=== PATIENT | female | born 1960 | race African-American/Black ===

== ENCOUNTER 2017-05-14 15:56 | Inpatient (IN) | payer BC ==
[~2017-05-14] VITALS: Ht 157.5 cm; Wt 48.5 kg
--- NOTE | ~2017-05-14 | HC ---
[facility] [place] [address] CONSULTATION Name: FRANCOIS LINTON Room #: 426-P [facility] IN M.R.#: [id number] Admission: 05/14/17 Attend Phys: Bronson Chavez MD Discharge: Date of : 60 Report #: [id number] THIS REPORT FOR: //name// CC: Dania Philippe DATE OF SERVICE: 05/15/2017 ATTENDING PHYSICIAN: Reyes Freeman MD REASON FOR CONSULTATION: Abdominal pain, nausea, and vomiting. HISTORY OF PRESENT ILLNESS: This is a 56-year-old female patient who was seen in the [facility] emergency room with abdominal pain starting the night before her admission. She also has some difficulty with nausea and vomiting and was directed to the emergency room for further evaluation and potential treatment by Dr. Silverio. The patient had not passed flatus and had a bowel movement on the morning of her admission. She denies any fever or chills. She underwent CT of the abdomen and pelvis, which showed changes consistent with a small-bowel obstruction. I have been asked to see the patient for further evaluation and treatment. PAST MEDICAL HISTORY: Significant for mixed connective tissue disease. The patient also has gastroesophageal reflux disease. PAST SURGICAL HISTORY: Includes a and bilateral tubal ligation. MEDICATIONS: Include omeprazole, Mysoline, and mycophenolate. Please see the electronic medical record for dosing details. ALLERGIES: DEMEROL. FAMILY HISTORY: Reviewed and noncontributory to this hospitalization. SOCIAL HISTORY: The patient is and accompanied by both her and mother. She denies use of tobacco, alcohol, or illicit drugs. 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 REVIEW OF SYSTEMS: As per history of present illness. In addition, GENERAL: The patient denies fever or chills. Denies unintentional weight loss. HEENT: Denies changes in taste, vision, hearing, or smell. RESPIRATORY: Denies shortness of breath, COPD or asthma. CARDIOVASCULAR: Denies chest pain or palpitations. GASTROINTESTINAL: As per history of present illness. Denies bright red blood per rectum. [facility] [address] [place] [address] CONSULTATION Name: LULY BOOTHFRANCOIS Room #: 426-P [facility]#: [id number] Admission: 05/14/17 Attend Phys: Bronson Chavez MD Discharge: Date of : 60 Report #: [id number] GENITOURINARY: Denies dysuria, urgency, increased urinary frequency, or hematuria. MUSCULOSKELETAL: Denies myalgia, arthralgia or arthritis. NEUROLOGIC: Denies headaches, numbness, or tingling. PSYCHIATRIC: Denies depression, anxiety or suicidal ideations. SKIN AND INTEGUMENTARY: Denies new skin lesions, rashes, or moles. ENDOCRINE: Denies polydipsia, polyuria, heat or cold intolerance. HEMATOLOGIC: Denies easy bleeding or bruising. All other review of systems is negative. PHYSICAL EXAMINATION: VITAL SIGNS: Temperature 97.7, blood pressure 138/87, pulse 72, and respirations 16. GENERAL: This is a well-developed, well-nourished 56-year-old female patient, in no acute distress. HEENT: Atraumatic, normocephalic with moist mucosal membranes. Oropharynx is clear. She has no scleral icterus. NECK: Supple. No appreciable lymphadenopathy. Trachea is midline. CHEST: Clear bilaterally. No crackles or wheezes. CARDIOVASCULAR: Regular rate and rhythm. ABDOMEN: Soft and mildly tender to palpation in the left lower quadrant with no rebound or guarding. No palpable masses. No appreciable hernias. GENITOURINARY: Normal external female genitalia. EXTREMITIES: No clubbing, cyanosis, or edema. NEUROLOGIC: Cranial nerves 2-12 are grossly intact. PSYCHIATRIC: Normal mood and affect. SKIN AND INTEGUMENTARY: No acute inflammatory changes, rashes or lesions are present. LABORATORY DATA: CBC from today shows a white blood cell count 5.0, hemoglobin 12.0, hematocrit 36.0 and platelets 155. Electrolytes show sodium 144, potassium 3.8, chloride 110, CO2 of 27, BUN 16, creatinine 0.7, and glucose 105. Lactic acid level last night was 1.7. Liver function tests showed a mildly elevated AST of 38. The remainder of her liver function tests were within normal limits. Lipase was normal at 84. Urinalysis showed 1+ ketones. RADIOLOGIC STUDIES: CT of the abdomen and pelvis, findings are as noted above. Multiple small-bowel loops were dilated into the distal small-bowel region suggestive of a distal small-bowel obstruction. There were no acute findings, otherwise with no appendicitis and a normal gallbladder. IMPRESSION AND PLAN: This is a 56-year-old female patient with abdominal pain, nausea, and vomiting and CT evidence for a small-bowel obstruction. We discussed the pathophysiology and natural history of small-bowel obstructions as well as treatment alternatives and surgical options. The patient reports having [facility] [address] [place] [address] CONSULTATION Name: FRANCOIS LINTON Room #: 426-P [facility] .R.#: [id number] Admission: 05/14/17 Attend Phys: Bronson Chavez MD Discharge: Date of : 60 Report #: [id number] passed a bowel movement earlier this morning and states that she is feeling well and is interested in being dismissed home. She does not have a nasogastric tube in place. This is reasonable considering she has a normal lactate, normal white blood cell count, and relatively benign exam. She would need to demonstrate clearance of her bowel obstruction and as such, I have ordered a KUB and upright to be obtained today. Should she show evidence for a worsening small-bowel obstruction, she would benefit from nasogastric decompression and bowel rest. Further recommendations will be made pending results of the KUB. I sincerely appreciate the opportunity to participate in the care of this patient and we will leave further recommendations and orders in the electronic medical record as appropriate. Thank you very much. <ELECTRONICALLY SIGNED> By: Eduard Philippe MD, FACS 05/16/17 [id number] Eduard Philippe MD, FACS /nt
[2017-05-14 15:59] VITALS: BP 132/81
[2017-05-14 16:43] LABS: HEMOGLOBIN 12.7 gm/dL (12.0-15.0); MCH 30.6 pg (26.0-34.0); MCHC 33.5 g/dL (28.0-37.0); MCV 91.3 fL (80.0-100.0); RBC 4.16 mil/uL (4.20-5.00); RDW 12.8 % (10.5-14.5)
[2017-05-14 16:47] LABS: CALCIUM 9.3 mg/dL (8.5-10.1); CREATININE 0.7 mg/dL (0.6-1.0); POTASSIUM 3.9 mmol/L (3.5-5.1)
[2017-05-14 16:53] LABS: ALBUMIN 4.4 g/dL (3.4-5.0); TOTAL BILIRUBIN 0.5 mg/dL (<0.1-1.0); TOTAL PROTEIN 10.1 g/dL (6.4-8.2)
[2017-05-14] MEDS ORDERED: MYSOLINE50 MG PO (16:56)
[2017-05-14] MEDS ORDERED: OMEPRAZOLE 20 M20 M1 PO (16:56)
[2017-05-14] MEDS ORDERED: CELLCEPT 250 M250 MG PO (16:57)
[2017-05-14 18:41] LABS: URINE BILIRUBIN NEGATIVE (Negative); URINE BLOOD NEGATIVE (Negative); URINE COLOR YELLOW; URINE GLUCOSE-RANDOM* NEGATIVE (Negative); URINE KETONES 1+ (Negative); URINE LEUKOCYTES-REFLEX NEGATIVE (Negative); URINE PROTEIN (DIPSTICK) NEGATIVE (Negative); URINE SPECIFIC GRAVITY <= 1.005 (1.005-1.035); URINE UROBILINOGEN 0.2 E.U./dl (0.2-1.0)
[2017-05-14 19:37] VITALS: BP 154/91
[2017-05-14 20:35] VITALS: BP 143/82
[2017-05-15] VITALS: BP 141/82
[2017-05-15 04:00] VITALS: BP 150/93
[2017-05-15 06:42] LABS: MCH 30.6 pg (26.0-34.0); MCHC 33.4 g/dL (28.0-37.0); MCV 91.5 fL (80.0-100.0); RBC 3.94 mil/uL (4.20-5.00); RDW 12.9 % (10.5-14.5)
[2017-05-15 06:47] LABS: CALCIUM 7.7 mg/dL (8.5-10.1); CREATININE 0.7 mg/dL (0.6-1.0); POTASSIUM 3.8 mmol/L (3.5-5.1)
[2017-05-15 07:44] VITALS: BP 138/87
[2017-05-15 14:58] VITALS: BP 141/90
[2017-05-15 16:07] VITALS: BP 145/90
[2017-05-15 20:37] VITALS: BP 121/80
[2017-05-16] VITALS: BP 138/73
[2017-05-16 04:05] VITALS: BP 107/65
[2017-05-16 06:36] LABS: HEMOGLOBIN 10.6 gm/dL (12.0-15.0); MCH 30.6 pg (26.0-34.0); MCHC 33.1 g/dL (28.0-37.0); MCV 92.5 fL (80.0-100.0); RBC 3.46 mil/uL (4.20-5.00); RDW 12.5 % (10.5-14.5)
[2017-05-16 06:49] LABS: CALCIUM 6.8 mg/dL (8.5-10.1); CREATININE 0.7 mg/dL (0.6-1.0); POTASSIUM 3.3 mmol/L (3.5-5.1)
[2017-05-16 08:00] VITALS: BP 121/75
[2017-05-16 16:00] VITALS: BP 133/80
[2017-05-16 20:00] VITALS: BP 113/74
[2017-05-17 04:00] VITALS: BP 124/82
[2017-05-17 05:52] LABS: HEMATOCRIT 31.2 % (37.0-47.0); HEMOGLOBIN 10.4 gm/dL (12.0-15.0); MCH 30.4 pg (26.0-34.0); MCHC 33.4 g/dL (28.0-37.0); MCV 90.9 fL (80.0-100.0); RBC 3.44 mil/uL (4.20-5.00); RDW 12.4 % (10.5-14.5); WBC 2.4 thou/uL (4.0-11.0)
[2017-05-17 06:16] LABS: CALCIUM 6.4 mg/dL (8.5-10.1); CREATININE 0.6 mg/dL (0.6-1.0); POTASSIUM 3.1 mmol/L (3.5-5.1)
[2017-05-17 08:05] VITALS: BP 124/76
[2017-05-17 16:44] VITALS: BP 151/87
[2017-05-17 20:12] VITALS: BP 125/77
[2017-05-18 03:45] VITALS: BP 118/76
[2017-05-18 08:09] VITALS: BP 115/77
[2017-05-18 15:41] VITALS: BP 115/77
== END 2017-05-18 15:56 | disposition home or self-care (01) | DRG 389 ==
LOC: ER 15:56 → 4E 19:02 → EROBS 19:02 → 4E 19:45
PROVIDERS: Emergency Medicine; Hospitalist; Nurse Practitioner Family
DX: K56.600 Partial intestinal obstruction, unspecified as to cause (principal); M35.1 Other overlap syndromes; K21.9 Gastro-esophageal reflux disease without esophagitis; Z98.891 History of uterine scar from previous surgery; Z79.899 Other long term (current) drug therapy; Z88.8 Allergy status to other drugs, medicaments and biological substances
CPT/HCPCS: 10084